=== PATIENT | female | born 2000 | race Caucasian/White ===

== ENCOUNTER 2022-04-28 16:13 | Emergency (ER) | payer MEDICAID ==
[~2022-04-28] VITALS: Wt 72.6 kg
[2022-04-28 16:35] LABS: BILIRUBIN Negative (Negative); BLOOD Negative (Negative); CLARITY Clear (Clear); COLOR Yellow (Yellow); GLUCOSE Negative (Negative); KETONE Negative (Negative); LEUKO ESTERASE Trace (Negative); NITRITE Negative (Negative); UROBILINOGEN 0.2 E.U./dl (0.0-1.0)
[2022-04-28 17:01] LABS: BACTERIA 1+; EPITHELIAL CELLS 21-30; RBC 0-2 rbc/hpf (0-2)
[2022-04-28] MEDS ORDERED: CEPHALEXIN500 M1 PO (17:32)
== END 2022-04-28 18:28 | disposition home or self-care (01) ==
LOC: ED 16:13
PROVIDERS: Internal Medicine
DX: O23.33 Infections of other parts of urinary tract in pregnancy, third trimester (principal); N39.0 Urinary tract infection, site not specified; Z3A.32 32 weeks gestation of pregnancy